=== PATIENT | female | born 1930 | race Caucasian/White ===

== ENCOUNTER → 2018-09-13 | Outpatient (CLI) | payer MEDICARE, OTHER | LOC: CARD 11:20 | PROVIDERS: ATTEND Internal Medicine Cardiovascular Disease | DX: I83.899 Varicose veins of unspecified lower extremity with other complications (principal); E78.2 Mixed hyperlipidemia; I10 Essential (primary) hypertension; I65.23 Occlusion and stenosis of bilateral carotid arteries; Z82.49 Family history of ischemic heart disease and other diseases of the circulatory system; I08.1 Rheumatic disorders of both mitral and tricuspid valves | CPT/HCPCS: 93306 ==

== ENCOUNTER 2020-06-03 22:17 | Inpatient (IN) | payer MEDICARE, OTHER ==
[~2020-06-03] VITALS: Ht 162.6 cm; Wt 69.0 kg
[2020-06-03] MEDS ORDERED: dilTIAZem DRIP PRE-MIX 125 ML IV SCH (23:30)
[2020-06-04 02:46] LABS: BASOPHILS # (AUTO) 0.1 10^3/uL (0.0-0.1); BASOPHILS % (AUTO) 1 % (0-10); EOSINOPHILS # (AUTO) 0.1 10^3/uL (0.0-0.3); EOSINOPHILS % (AUTO) 2 % (0-10); HEMATOCRIT 34 % (35-52); HEMOGLOBIN 11.1 g/dL (11.5-16.0); LYMPHOCYTES # (AUTO) 1.1 10^3/uL (1.0-4.0); LYMPHOCYTES % (AUTO) 15 % (12-44); MEAN CORPUSCULAR HEMOGLOBIN 30 pg (25-34); MEAN CORPUSCULAR HGB CONC 33 g/dL (32-36); MEAN CORPUSCULAR VOLUME 93 fL (80-99); MEAN PLATELET VOLUME 10.7 fL (9.0-12.2); MONOCYTES # (AUTO) 0.6 10^3/uL (0.0-1.0); MONOCYTES % (AUTO) 9 % (0-12); NEUTROPHILS # (AUTO) 5.2 10^3/uL (1.8-7.8); NEUTROPHILS % (AUTO) 74 % (42-75); PLATELET COUNT 235 10^3/uL (130-400); WHITE BLOOD COUNT 7.1 10^3/uL (4.3-11.0)
[2020-06-04 03:00] LABS: ALBUMIN 3.1 GM/DL (3.2-4.5)
[2020-06-04 03:01] LABS: CHLORIDE 106 MMOL/L (98-107); POTASSIUM 3.6 MMOL/L (3.6-5.0); SODIUM 141 MMOL/L (135-145)
[2020-06-04 03:02] LABS: CALCIUM 8.4 MG/DL (8.5-10.1)
[2020-06-04 03:03] LABS: GLUCOSE 124 MG/DL (70-105); TOTAL PROTEIN 5.4 GM/DL (6.4-8.2)
[2020-06-04 03:04] LABS: CARBON DIOXIDE 27 MMOL/L (21-32)
[2020-06-04 03:05] LABS: BILIRUBIN,TOTAL 0.3 MG/DL (0.1-1.0)
[2020-06-04 03:06] LABS: ALKALINE PHOSPHATASE 77 U/L (40-136); PHOSPHORUS 3.2 MG/DL (2.3-4.7)
[2020-06-04 03:07] LABS: CREATININE SERUM 0.76 MG/DL (0.60-1.30); GFR ESTIMATED > 60
[2020-06-04 03:08] LABS: BUN/CREATININE RATIO 30
[2020-06-04 03:10] LABS: ALANINE AMINOTRANSFERASE 28 U/L (0-55); MAGNESIUM 1.9 MG/DL (1.6-2.4)
--- NOTE | 2020-06-04 04:39 | Pulmonary Consultation ---
History of Present Illness History of Present Illness Date Seen by Provider: Jun 04, 2020 Time Seen by Provider: 04:34 Date of Admission Allergies and Home Medications Allergies Coded Allergies: penicillin G benethamine (Verified Allergy, Mild, 06/03/20) Past Lrnoovv-Psysct-Mmanwt Hx Immunizations Up To Date Date of Pneumonia Vaccine: Jun 04, 2017 Review of Systems Time Seen by Provider: 04:37 Sepsis Event Evaluation Height, Weight, BMI Height: '" Weight: lbs. oz. kg; BMI Method: Exam Exam Vital Signs Date Time Temp Pulse Resp B/P (MAP) Pulse Ox O2 Delivery O2 Flow Rate FiO2 06/04/20 04:00 97 Nasal Cannula 1.00 06/04/20 01:00 66 06/04/20 01:00 66 81/35 (50) 96 Nasal Cannula 1.00 06/04/20 01:00 97 Nasal Cannula 1.00 06/03/20 23:14 81 Height & Weight Height: '" Weight: lbs. oz. kg; BMI Method: Results Lab Laboratory Tests 06/04/20 02:31 Assessment/Plan Assessment/Plan SOB worse with exertion -Oxygen -Monitor -Check CXR Afib RVR -Cardizem gtt -Cardiology consulted -Currently on Xeralto -Echo pending Hypothryoid -start home synthroid -Check TSH HTN -Monitor KRISTINA GUPTA DO Jun 04, 2020 04:39
[2020-06-04] MEDS ORDERED: MAGNESIUM 1 GM/100 ML IVPB 100 ML IV SCH ×2 (06:00)
[2020-06-04] MEDS ORDERED: KCL 20 MEQ TAB (K-DUR) PO SCH ×2 (06:00)
[2020-06-04] MEDS ORDERED: POTASSIUM CL 10MEQ/50ML IVPB 50 ML IV SCH ×2 (06:00)
--- NOTE | 2020-06-04 07:53 | Diagnostic Imaging Report ---
INDICATION: Dyspnea. EXAMINATION: Single view chest 06/04/2020 FINDINGS: Heart is slightly prominent. Pulmonary vasculature is unremarkable. There is an infiltrate at the left lung base with small adjacent effusion. Right infrahilar infiltrate also suspected. Remaining lungs clear. There is no pneumothorax IMPRESSION: 1. Bilateral infiltrates with small left effusion. Dictated by: Dictated on workstation # [id number]
--- NOTE | 2020-06-04 07:57 | Consultation-Cardiology ---
HPI-Cardiology Cardiology Consultation: Date of Consultation 06/04/20 Date of Admission Attending Physician Carolin Yan MD Admitting Physician Carolin Yan MD Consulting Physician Faby Preston MD Primary Diesel Engine Tester: Dr. Gamez JIE-Syhqrq-Xnvaew Hx Immunizations Up To Date Date of Pneumonia Vaccine: Jun 04, 2017 Past Medical History PMH As described under Assessment. Allergies and Home Medications Allergies Coded Allergies: penicillin G benethamine (Verified Allergy, Mild, 06/03/20) Home Medications Amlodipine Besylate 5 Mg Tablet, 5 MG PO DAILY, (Reported) Ascorbate Calcium 500 Mg Tablet, 500 MG PO DAILY, (Reported) Cholecalciferol (Vitamin D3) 25 Mcg Capsule, 25 MCG PO DAILY, (Reported) Ketorolac Tromethamine 5 Ml Drops, 1 DROP OS QID, (Reported) Levothyroxine Sodium 88 Mcg Tablet, 88 MCG PO ,,,,,SA, (Reported) DOES NOT TAKE ON WEDNESDAY Lisinopril 40 Mg Tablet, 40 MG PO DAILY, (Reported) Lisinopril 40 Mg Tablet, 40 MG PO HS PRN for BLOOD PRESSURE, (Reported) Multivitamin 1 Each Tablet, 1 EACH PO DAILY, (Reported) Naproxen 250 Mg Tablet, 250 MG PO BID PRN for PAIN-MILD (1-4), (Reported) Ofloxacin 5 Ml Drops, 1 DROP OS QID, (Reported) L[place]-3 Fatty Acids/Fish Oil 1 Each Capsule, 1 EACH PO DAILY, (Reported) Potassium Chloride 10 Meq Tablet.er, 10 MEQ PO DAILY, (Reported) Prednisolone Acetate/Pf 5 Ml Drops.susp, 1 DROPS OS QID, (Reported) Vitamin E (Dl,Tocopheryl Acet) 100 Unit Capsule, 100 UNIT PO DAILY, (Reported) Physical Exam-Cardiology Physical Exam Vital Signs/I&O 06/04/20 06/04/20 06/04/20 06/04/20 05:00 05:00 05:30 06:00 Temp 36.2 Pulse 72 79 71 Resp 15 25 21 B/P (MAP) 84/49 (61) 110/58 (75) 101/71 (81) Pulse Ox 93 91 91 O2 Delivery Nasal Cannula Nasal Cannula Nasal Cannula O2 Flow Rate 1.00 1.00 1.00 06/04/20 06/04/20 06/04/20 06/04/20 07:00 07:05 08:00 08:26 Temp 36.7 Pulse 71 78 77 Resp 16 24 B/P (MAP) 104/57 (73) 85/51 (62) Pulse Ox 87 89 O2 Delivery Nasal Cannula Nasal Cannula O2 Flow Rate 1.00 1.00 06/04/20 06/04/20 06/04/20 06/04/20 08:42 09:00 09:20 11:00 Temp 36.7 Pulse 71 78 73 Resp 13 10 B/P (MAP) 95/64 (74) 105/73 (84) Pulse Ox 95 95 94 96 O2 Delivery Nasal Cannula Room Air Nasal Cannula O2 Flow Rate 1.00 1.00 06/04/20 06/04/20 06/04/20 06/04/20 12:53 13:23 14:47 15:25 Temp 36.2 36.0 Pulse Ox 94 O2 Delivery Nasal Cannula O2 Flow Rate 1.50 Capillary Refill : Data Review Labs Laboratory Tests 06/04/20 02:31: White Blood Count 7.1, Red Blood Count 3.65L, Hemoglobin 11.1L, Hematocrit 34L, Mean Corpuscular Volume 93, Mean Corpuscular Hemoglobin 30, Mean Corpuscular Hemoglobin Concent 33, Red Cell Distribution Width 13.7, Platelet Count 235, Mean Platelet Volume 10.7, Immature Granulocyte % (Auto) 0, Neutrophils (%) (Auto) 74, Lymphocytes (%) (Auto) 15, Monocytes (%) (Auto) 9, Eosinophils (%) (Auto) 2, Basophils (%) (Auto) 1, Neutrophils # (Auto) 5.2, Lymphocytes # (Auto) 1.1, Monocytes # (Auto) 0.6, Eosinophils # (Auto) 0.1, Basophils # (Auto) 0.1, Immature Granulocyte # (Auto) 0.0, Sodium Level 141, Potassium Level 3.6, Chloride Level 106, Carbon Dioxide Level 27, Anion Gap 8, Blood Urea Nitrogen 23H, Creatinine 0.76, Estimat Glomerular Filtration Rate > 60, BUN/Creatinine Ratio 30, Glucose Level 124H, Calcium Level 8.4L, Corrected Calcium 9.1, Phosphorus Level 3.2, Magnesium Level 1.9, Total Bilirubin 0.3, Aspartate Amino Transf (AST/SGOT) 53H, Alanine Aminotransferase (ALT/SGPT) 28, Alkaline Phosphatase 77, B-Type Natriuretic Peptide 540.7H, Total Protein 5.4L, Albumin 3.1L ECG Impression ECG Initial ECG Impression: Atrial Fibrillation A/P-Cardiology Assessment/Admission Diagnosis A-fib H/O PAD H/O right CEA - carotid u/s of Feb [address] Gamez showed mild bilat dz HTN HLD Echocardiogram of August [address] Gamez showed mild MR, mild to mod TR, PASP45 mmHg Clinical Quality Measures DVT/VTE Risk/Contraindication: Risk Factor Score Per Nursin RFS Level Per Nursing on Admit: 2=Moderate THOMPSON CAMPBELL Jun 04, 2020 07:57
[2020-06-04] MEDS ORDERED: FLU QUAD HIGH DOSE 240 MCG/0.7 ML 2020-21 (FLUZONE) IM ONE (08:00)
[2020-06-04] MEDS ORDERED: KCL 20 MEQ TAB (K-DUR) PO ONE (08:00)
--- NOTE | 2020-06-04 08:18 | History & Physical ---
History of Present Illness History of Present Illness Reason for visit/HPI PT IS AN 89 Y/O FEMALE WHO IS KNOWN TO ME FROM CLINIC. SHE PRESENTED TO THE [facility] EMERGENCY DEPARTMENT WITH COMPLAINT OF PROGRESSIVE SHORTNESS OF BREATH AND WEAKNESS. SHE WAS EVALUATED, FOUND TO BE IN AFIB WITH RVR, HEART RATE IN THE 120 - 140 RANGE, STARTED ON A CARDIZEM DRIP AND THEN TRANSFERRED TO [facility] ICU FOR CARDIOLOGY EVALUATION AND FURTHER MEDICAL MANAGEMENT BY THIS EQUAL OPPORTUNITY DIRECTOR. THIS MORNING SHE DENIES CHEST PAIN, SHORTNESS OF BREATH IS SLIGHT COMPARED TO YESTERDAY, NO BACK PAIN, NO ABDOMINAL PAIN. Date of Admission Jun 03, 2020 at 23:05 Date Seen by a Provider: Jun 04, 2020 Time Seen by a Provider: 08:00 Attending Physician Charlene Yan MD Admitting Physician Charlene Yan MD Consult CARDIOLOGY, CRITICAL CARE Allergies and Home Medications Allergies Coded Allergies: penicillin G benethamine (Verified Allergy, Mild, 06/03/20) Home Medications Amlodipine Besylate 5 Mg Tablet, 5 MG PO DAILY, (Reported) Ascorbate Calcium 500 Mg Tablet, 500 MG PO DAILY, (Reported) Cholecalciferol (Vitamin D3) 25 Mcg Capsule, 25 MCG PO DAILY, (Reported) Ketorolac Tromethamine 5 Ml Drops, 1 DROP OS QID, (Reported) Levothyroxine Sodium 88 Mcg Tablet, 88 MCG PO ,,,,FR,SA, (Reported) DOES NOT TAKE ON WEDNESDAY Lisinopril 40 Mg Tablet, 40 MG PO DAILY, (Reported) Lisinopril 40 Mg Tablet, 40 MG PO HS PRN for BLOOD PRESSURE, (Reported) Multivitamin 1 Each Tablet, 1 EACH PO DAILY, (Reported) Naproxen 250 Mg Tablet, 250 MG PO BID PRN for PAIN-MILD (1-4), (Reported) Ofloxacin 5 Ml Drops, 1 DROP OS QID, (Reported) Bee-3 Fatty Acids/Fish Oil 1 Each Capsule, 1 EACH PO DAILY, (Reported) Potassium Chloride 10 Meq Tablet.er, 10 MEQ PO DAILY, (Reported) Prednisolone Acetate/Pf 5 Ml Drops.susp, 1 DROPS OS QID, (Reported) Vitamin E (Dl,Tocopheryl Acet) 100 Unit Capsule, 100 UNIT PO DAILY, (Reported) Patient Home Medication List Home Medication List Reviewed: Yes Past Gcuyzcg-Xpocxq-Txkzpo Hx Past Med/Social Hx: Reviewed Nursing Past Med/Soc Hx, Reviewed and Corrections made Patient Social History Marrital Status: Living Status: LIVES AT HOME WITH SPOUSE IN [place] Employed/Student: retired Alcohol Use: Denies Use Smoking Status: Never a Smoker 2nd Hand Smoke Exposure: No Physical Abuse Screen: No Sexual Abuse: No Recent Foreign Travel: No Contact w/other who traveled: No Recent Hopitalizations: No Recent Infectious Disease Expo: No Immunizations Up To Date Date of Pneumonia Vaccine: Jun 04, 2017 Seasonal Allergies Seasonal Allergies: No Past Medical History Surgeries: Vascular Surgery (carotid endarterectomy) Currently Using CPAP: No Currently Using BIPAP: No Cardiac: High Cholesterol, Hypertension Female Reproductive Disorders: Denies Musculoskeletal: Arthritis Loss of Vision: Denies Hearing Impairment: Denies History of Blood Disorders: No Adverse Reaction to Blood Currie: No Family History Heart Disease, Hypertension Review of Systems Constitutional: No chills, No fever; malaise, weakness EENTM: hoarseness; No throat pain Respiratory: No cough; dyspnea on exertion, short of breath Cardiovascular: chest pain, palpitations Gastrointestinal: No abdominal pain, No constipation, No diarrhea Genitourinary: no symptoms reported Musculoskeletal: muscle weakness Skin: no symptoms reported Psychiatric/Neurological: Denies Anxiety, Denies Depressed; Weakness All Other Systems Reviewed Negative Unless Noted: Yes Physical Exam Vital Signs Vital Signs - First Documented 06/03/20 23:11 Pulse 104 Resp 28 B/P (MAP) 134/110 (118) Pulse Ox 98 O2 Delivery Nasal Cannula O2 Flow Rate 1.00 Capillary Refill : Height, Weight, BMI Height: '" Weight: lbs. oz. kg; 26.96 BMI Method: General Appearance: No Apparent Distress, WD/WN Eyes: Bilateral Eye Normal Inspection, Bilateral Eye PERRL, Bilateral Eye EOMI HEENT: PERRL/EOMI, TMs Normal, Normal ENT Inspection, Pharynx Normal Neck: Full Range of Motion, Non Tender, Supple Respiratory: Chest Non Tender, Crackles (in bases), Decreased Breath Sounds Cardiovascular: Irregularly Irregular, Tachycardia Gastrointestinal: Normal Bowel Sounds, No Organomegaly, No Pulsatile Mass, Non Tender, Soft Rectal: Deferred Back: Normal Inspection, No Vertebral Tenderness Extremity: Normal Capillary Refill, Normal Range of Motion, Non Tender, No Calf Tenderness, No Pedal Edema Neurologic/Psychiatric: Alert, Oriented x3, No Motor/Sensory Deficits, Normal Mood/Affect, manufacturing cost 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 HYPERLIPIDEMIA - RESUME HOME REGIMEN Admission Diagnosis NEW ONSET ATRIAL FIBRILLATION ACUTE BACTERIAL PNEUMONIA ELEVATED BNP HYPERTENSION HYPERLIPIDEMIA Admission Status: Inpatient Order (span 2 midnights) Reason for Inpatient Admission: INPATIENT ADMISSION FOR ATRIAL FIBRILLATION, PNEUMONIA - WILL REQUIRE AT LEAST 48 - 72 HOURS FOR STABILIZATION, MEDICATION MANAGEMENT Clinical Quality Measures DVT/VTE Risk/Contraindication: Risk Factor Score Per Nursin RFS Level Per Nursing on Admit: 2=Moderate CHARLENE YAN MD Jun 04, 2020 08:18
[2020-06-04 08:42] VITALS: BP 101/71
[2020-06-04] MEDS ORDERED: RT-ALBUTEROL INHALER HFA (VENTOLIN HFA) 18 GM IH PRN (09:00)
[2020-06-04] MEDS: RT-ALBUTEROL INHALER HFA (VENTOLIN HFA) 18 GM IH SCH ×2 (09:30→21:46)
--- NOTE | 2020-06-04 11:20 | Cardiology History & Physical ---
HPI-Cardiology Cardiology H&P Date of Admission 06/03/19 Primary Care Physician Carolin Yan MD Attending Physician Carolin Yan MD Consulting Physician Dr. Faby Preston [facility] Azra Majano is an 89 y/o female w/ PMHx of HTN, HLD, hypothyroidism and rCEA who presents from the [place] ER for management of SOB, racing heart sensation and fatigue onset yesterday night. Patient states she was at home relaxing when symptoms gradually onset till she felt she needed to go to the ER. She denies any associated CP at any point, though the tachycardia has been occurring for the last 2 days (she is unsure if constant vs episodic) and states she has never had previous episodes of tachycardia. Per note by Dr. Yan, EKG done at [place] showed Afib with RVR and rate of 120-140; subsequently started on Cardizem drip and transferred to [facility] for further management. Upon arrival last night, patient was seen by Dr. Ledbetter, EKG showed afib, patient reported SOB w/exertion. Patient was put on Cardizem and Xoralto. Cxr showed bilateral infiltrates and small L pleural effusion, currently on Azithromycin and Ceftriaxone, as well as 1L nc (sat 95%). Labs from this morning show elevated BNP of 540.7 and mild anemia of 11.1 otherwise unremarkable. Echo has been ordered by Dr. Yan, patient currently laying comfortably in her room with no current complaints and stating that her breathing is significantly improved though she is having trouble remembering much of the last 24 hours. Denies and significant cardiac history prior to current visit other than a murmur during one of her pregnancies which has since resolved, notes her father's side of the family has a hx of CVAs. Patient had an echo done by Dr. Gamez 08/2018 which showed mild mitral regurge,mild/moderate tricuspid regurge and PASP of 45. Review of Systems-Cardiology Review of Systems Constitutional: No fever; tiredness Eyes: No blindness, No blurred vision, No photophobia, No vision change Ears/Nose/Throat: No epistaxis; nasal drainage (trace, chronic); No recent hearing loss Respiratory: No cough; SOB with excertion (resolved), SOB at rest (resolved); No wheezing Cardiovascular: No chest pain; edema (2+ pitting), irregular heart rate (resolved); No lightheadedness, No syncope Gastrointestinal: No abdomen distended, No abdominal pain, No constipation, No diarrhea, No nausea, No vomiting Genitourinary: No dysuria, No urine coloration changes Musculoskeletal: back pain (chronic), joint pain (chronic, L hip) Skin: No change in color, No ulcerations Psychiatric/Neurological: No numbness, No seizure, No focal weakness, No syncope AKT-Uulthd-Wsoraj Hx Patient Social History Marrital Status: Living Status: LIVES AT HOME WITH SPOUSE IN [place] Employed/Student: retired Alcohol Use: Denies Use Smoking Status: Never a Smoker 2nd Hand Smoke Exposure: No Recent Foreign Travel: No Recent Infectious Disease Expo: No Physical Abuse Screen: No Sexual Abuse: No Immunizations Up To Date Date of Pneumonia Vaccine: Jun 04, 2017 Past Medical History PMH As described under Assessment., lower back vertebral compression fracture Family Medical History Family Medical History: Father: CVA (multiple members on his side) mother: Leukemia Allergies and Home Medications Allergies Coded Allergies: penicillin G benethamine (Verified Allergy, Mild, 06/03/20) Home Medications Amlodipine Besylate 5 Mg Tablet, 5 MG PO DAILY, (Reported) Ascorbate Calcium 500 Mg Tablet, 500 MG PO DAILY, (Reported) Cholecalciferol (Vitamin D3) 25 Mcg Capsule, 25 MCG PO DAILY, (Reported) Ketorolac Tromethamine 5 Ml Drops, 1 DROP OS QID, (Reported) Levothyroxine Sodium 88 Mcg Tablet, 88 MCG PO ,,,,FR,SA, (Reported) DOES NOT TAKE ON WEDNESDAY Lisinopril 40 Mg Tablet, 40 MG PO DAILY, (Reported) Lisinopril 40 Mg Tablet, 40 MG PO HS PRN for BLOOD PRESSURE, (Reported) Multivitamin 1 Each Tablet, 1 EACH PO DAILY, (Reported) Naproxen 250 Mg Tablet, 250 MG PO BID PRN for PAIN-MILD (1-4), (Reported) Ofloxacin 5 Ml Drops, 1 DROP OS QID, (Reported) Fulda-3 Fatty Acids/Fish Oil 1 Each Capsule, 1 EACH PO DAILY, (Reported) Potassium Chloride 10 Meq Tablet.er, 10 MEQ PO DAILY, (Reported) Prednisolone Acetate/Pf 5 Ml Drops.susp, 1 DROPS OS QID, (Reported) Vitamin E (Dl,Tocopheryl Acet) 100 Unit Capsule, 100 UNIT PO DAILY, (Reported) Patient Home Medication List Home Medication List Reviewed: Yes Physical Exam-Cardiology Physical Exam Vital Signs/I&O 06/04/20 06/04/20 06/04/20 06/04/20 03:00 04:00 04:00 05:00 Pulse 69 70 72 Resp 21 25 15 B/P (MAP) 89/61 (67) 98/57 (69) 84/49 (61) Pulse Ox 96 97 92 93 O2 Delivery Nasal Cannula Nasal Cannula Nasal Cannula Nasal Cannula O2 Flow Rate 1.00 1.00 1.00 1.00 06/04/20 06/04/20 06/04/20 06/04/20 05:00 05:30 06:00 07:00 Temp 36.2 Pulse 79 71 71 Resp 21 16 B/P (MAP) 110/58 (75) 101/71 (81) 104/57 (73) Pulse Ox 91 91 87 O2 Delivery Nasal Cannula Nasal Cannula Nasal Cannula O2 Flow Rate 1.00 1.00 1.00 06/04/20 06/04/20 06/04/20 06/04/20 07:05 08:00 08:26 08:42 Temp 36.7 36.7 Pulse 78 77 71 Resp 24 B/P (MAP) 85/51 (62) Pulse Ox 89 95 O2 Delivery Nasal Cannula O2 Flow Rate 1.00 06/04/20 06/04/20 06/04/20 06/04/20 09:00 11:00 12:53 13:23 Temp 36.2 Pulse 78 73 Resp 13 10 B/P (MAP) 95/64 (74) 105/73 (84) Pulse Ox 95 96 O2 Delivery Nasal Cannula Nasal Cannula Nasal Cannula O2 Flow Rate 1.00 1.00 1.50 Capillary Refill : Constitutional: appears stated age, AAO x 3; No apparent distress HEENT: No scleral icterus (R), No scleral icterus (L), No pale conjunctivae (R), No photophobia; hearing is well preserved Neck: non-tender, full range of motion, normal inspection; No carotid bruit, No lymphadenopathy (R), No lymphadenopathy (L), No tender lateral, No tender midline, No thyromegaly; carotid pulses are 2 + bilaterally Respiratory: No accessory muscle use, No respiratory distress, No chest tender; chest expansion is symmetric; No rhonchi, No wheezing Cardiovascular: irregularly irregular; No bradycardia, No tachycardia; other (quiet heart sounds) Gastrointestinal: No tender; soft; No distended, No pulsatile mass, No organomegaly, No guarding, No rebound, No tenderness; audible bowel sounds; No abdominal bruits, No spleenomegaly Extremities: normal range of motion, non-tender, pedal edema (2+ pitting); No calf tenderness, No calf tenderness, No cyanosis, No laceration Neurologic/Psychiatric: no motor/sensory deficits, alert, normal mood/affect, oriented x 3; No aphasia, No facial droop, No depressed affect Skin: normal color; No diaphoresis, No ecchymosis, No jaundice, No rash, No ulcerations Data Review Labs Laboratory Tests 06/04/20 02:31: White Blood Count 7.1, Red Blood Count 3.65L, Hemoglobin 11.1L, Hematocrit 34L, Mean Corpuscular Volume 93, Mean Corpuscular Hemoglobin 30, Mean Corpuscular H emoglobin Concent 33, Red Cell Distribution Width 13.7, Platelet Count 235, Mean Platelet Volume 10.7, Immature Granulocyte % (Auto) 0, Neutrophils (%) (Auto) 74, Lymphocytes (%) (Auto) 15, Monocytes (%) (Auto) 9, Eosinophils (%) (Auto) 2, Basophils (%) (Auto) 1, Neutrophils # (Auto) 5.2, Lymphocytes # (Auto) 1.1, Monocytes # (Auto) 0.6, Eosinophils # (Auto) 0.1, Basophils # (Auto) 0.1, Immature Granulocyte # (Auto) 0.0, Sodium Level 141, Potassium Level 3.6, Chloride Level 106, Carbon Dioxide Level 27, Anion Gap 8, Blood Urea Nitrogen 23H, Creatinine 0.76, Estimat Glomerular Filtration Rate > 60, BUN/Creatinine Ratio 30, Glucose Level 124H, Calcium Level 8.4L, Corrected Calcium 9.1, Phosphorus Level 3.2, Magnesium Level 1.9, Total Bilirubin 0.3, Aspartate Amino Transf (AST/SGOT) 53H, Alanine Aminotransferase (ALT/SGPT) 28, Alkaline Phosphatase 77, B-Type Natriuretic Peptide 540.7H, Total Protein 5.4L, Albumin 3.1L A/P-Cardiology Assessment/Admission Diagnosis -A-fib (new onset, dx on 06/03/20 by EKG at [facility]) -continue OAC Xarelto for CVA prophylaxis -continue Cardizem for rate control -echocardiogram ordered -order TSH -Multifactorial SOB secondary to CHF (possibly pneumonia) -management per pulmonary -currently on Azithromycin and Ceftriaxone -Elevated BNP -likely from Afib -repeat labs Possible CHF -diuretics -monitor labs and replace as needed Chronic -HTN -HLD -hypothyroidism -L hip pain -lower back compression fx Admission Status: Inpatient Order (span 2 midnights) Reason for Inpatient Admission: A fib with RVR and associated shortness of breath and malaise Discussion and Recomendations We saw the patient in consult. History and physical are described above Symptoms have improved with rate control with diltiazem Change to oral diltiazem Continue stroke prophylaxis with rivaroxaban Monitor labs Clinical Quality Measures DVT/VTE Risk/Contraindication: Risk Factor Score Per Nursin RFS Level Per Nursing on Admit: 2=Moderate PALAK CHOPRA MED STUDENT Jun 04, 2020 11:20 FABY PRESTON MD FACP FAC CCDS Jun 04, 2020 14:52
[2020-06-04] MEDS: AZITHROMYCIN 250 MG TAB (ZITHROMAX) PO SCH (13:28)
[2020-06-04] MEDS: cefTRIAXone FOR IV USE 1,000 MG in WATER (STERILE) FOR INJECTION 10 ML IV SCH (13:28)
[2020-06-04] MEDS ORDERED: NAPR250T6 PO (13:59)
[2020-06-04] MEDS ORDERED: AMLO-250 PO (13:59)
[2020-06-04] MEDS ORDERED: POTA10TA PO (13:59)
[2020-06-04] MEDS ORDERED: ASCO-262 PO (13:59)
[2020-06-04] MEDS ORDERED: CHOL100048 PO (13:59)
[2020-06-04] MEDS ORDERED: LISI40TA PO ×2 (13:59)
[2020-06-04] MEDS ORDERED: OMEG-109 PO (13:59)
[2020-06-04] MEDS ORDERED: MULT-1136 PO (13:59)
[2020-06-04] MEDS ORDERED: VITA100C22 PO (13:59)
--- NOTE | 2020-06-04 14:01 | NUR ---
ATTEMPTED TO CALL PATIENTS DAUGHTERSALINAS AT [phone]. UNABLE TO LEAVE MESSAGE, PHONE ONLY RANG. WILL AWAIT FOR FAMILY TO CALL.
[2020-06-04] MEDS ORDERED: PRED5DRO24 OS (14:08)
[2020-06-04] MEDS ORDERED: LEVO88TA54 PO (14:08)
[2020-06-04] MEDS ORDERED: OFLO5DRO3 OS (14:08)
[2020-06-04] MEDS ORDERED: KETO5DRO14 OS (14:08)
--- NOTE | 2020-06-04 14:15 | NUR ---
SPOKE WITH THE PT, WENT THRU THE EXT MED HISTORY AND CALLED [facility] TO COMPLETE THE MED REC ACCORDING TO THE PT SHE TAKES LISINOPRIL 40MG DAILY (WHICH IS SHOWN ON THE EXT MED HISTORY) AND LATELY SHE HAS BEEN TAKING A SECOND DOSE IN THE EVENING IF HER BP IS RAISED. PT WAS HONEST IN SAYING THAT NO ONE INSTRUCTED HER TO DO THIS BUT SHE DIDNT WANT HER BP TO GET TO HIGH AND THOUGHT THIS WOULD HELP. 1 ENTRY ON THE MED REC IS THE DAILY SCHEDULED DOSE AND I INCLUDED 1 ENTRY FOR THE BEDTIME PRN FOR DISCHAGE PURPOSES SHE IS CURRENTLY USING 3 DIFFERENT EYEDROPS DUE TO AN EYE PROCEDURE. SHE IS ONLY TO BE USING ON THE CURRENT OPERATIVE EYE (WHICH IS THE LEFT EYE) BUT SHE SOMETIMES FORGETS AND WILL PUT A DROP IN THE OTHER EYE (SHE WAS USING IN HER RIGHT EYE ONLY A COUPLE MONTHS AGO WHEN SHE HAD THE FIRST PROCEDURE DONE) OTC MEDS: MTV VIT E VIT C VIT D FISH OIL
[2020-06-04] MEDS: LEVOTHYROXINE 88 MCG (LEVOTHORID) TAB PO SCH (18:31)
[2020-06-04] MEDS: RIVAROXABAN 20 MG TABLET (XARELTO) PO SCH (18:31)
[2020-06-05] MEDS: ACETAMINOPHEN 500 MG TAB (TYLENOL) PO PRN ×2 (02:14→19:42)
[2020-06-05 03:16] LABS: BASOPHILS # (AUTO) 0.1 10^3/uL (0.0-0.1); BASOPHILS % (AUTO) 1 % (0-10); EOSINOPHILS # (AUTO) 0.2 10^3/uL (0.0-0.3); EOSINOPHILS % (AUTO) 2 % (0-10); HEMATOCRIT 36 % (35-52); HEMOGLOBIN 11.5 g/dL (11.5-16.0); LYMPHOCYTES % (AUTO) 13 % (12-44); MEAN CORPUSCULAR HEMOGLOBIN 30 pg (25-34); MEAN CORPUSCULAR HGB CONC 32 g/dL (32-36); MEAN CORPUSCULAR VOLUME 94 fL (80-99); MEAN PLATELET VOLUME 10.9 fL (9.0-12.2); MONOCYTES # (AUTO) 0.7 10^3/uL (0.0-1.0); MONOCYTES % (AUTO) 9 % (0-12); NEUTROPHILS # (AUTO) 5.9 10^3/uL (1.8-7.8); NEUTROPHILS % (AUTO) 75 % (42-75); PLATELET COUNT 239 10^3/uL (130-400); WHITE BLOOD COUNT 7.9 10^3/uL (4.3-11.0)
[2020-06-05 03:34] LABS: CHLORIDE 106 MMOL/L (98-107); POTASSIUM 3.9 MMOL/L (3.6-5.0); SODIUM 139 MMOL/L (135-145)
[2020-06-05 03:35] LABS: GLUCOSE 103 MG/DL (70-105)
[2020-06-05 03:37] LABS: CARBON DIOXIDE 25 MMOL/L (21-32)
[2020-06-05 03:39] LABS: CREATININE SERUM 0.77 MG/DL (0.60-1.30); GFR ESTIMATED > 60
[2020-06-05 03:40] LABS: BUN/CREATININE RATIO 23
--- NOTE | 2020-06-05 04:24 | Pulmonary Progress Note ---
TAYLOR JULIAN,MED STUDENT 06/05/20 0423: Subjective Date Seen by a Provider: Jun 05, 2020 Time Seen by a Provider: 04:22 Subjective/Events-last exam Pt states she is doing better. Her shortness of breath is improved. She continues to deny chest pain and palpitations. Review of Systems General: No Chills Pulmonary: No Dyspnea, No Cough Cardiovascular: No: Chest Pain, Palpitations Sepsis Event Evaluation Height, Weight, BMI Height: '" Weight: lbs. oz. kg; 26.96 BMI Method: Exam Exam Vital Signs Date Time Temp Pulse Resp B/P (MAP) Pulse Ox O2 Delivery O2 Flow Rate FiO2 06/05/20 04:04 36.7 06/04/20 23:49 36.8 Nasal Cannula 1.00 06/04/20 22:00 79 16 101/71 (81) 96 Nasal Cannula 1.00 06/04/20 21:47 94 Nasal Cannula 2.00 06/04/20 20:21 37.0 06/04/20 20:00 95 Nasal Cannula 1.00 06/04/20 19:45 36.2 80 18 121/64 (83) 95 Nasal Cannula 1.00 06/04/20 15:25 36.0 06/04/20 14:47 94 06/04/20 14:30 105 22 117/66 (83) 93 Nasal Cannula 1.00 06/04/20 14:00 77 20 96 Nasal Cannula 1.00 06/04/20 13:23 Nasal Cannula 1.50 06/04/20 13:00 81 12 117/81 (93) 95 Nasal Cannula 1.00 06/04/20 12:53 36.2 06/04/20 12:45 81 06/04/20 12:00 66 16 107/54 (71) 93 Nasal Cannula 1.00 06/04/20 11:00 73 10 105/73 (84) 96 Nasal Cannula 1.00 06/04/20 09:20 94 Room Air 06/04/20 09:00 78 13 95/64 (74) 95 Nasal Cannula 1.00 06/04/20 08:42 36.7 71 95 06/04/20 08:26 36.7 06/04/20 08:00 77 24 85/51 (62) 89 Nasal Cannula 1.00 06/04/20 07:05 78 06/04/20 07:00 71 16 104/57 (73) 87 Nasal Cannula 1.00 06/04/20 06:00 71 21 101/71 (81) 91 Nasal Cannula 1.00 06/04/20 05:30 79 25 110/58 (75) 91 Nasal Cannula 1.00 06/04/20 05:00 36.2 06/04/20 05:00 72 15 84/49 (61) 93 Nasal Cannula 1.00 I & O 06/05/20 07:00 Intake Total 590 ml Output Total 570 ml Balance 20 ml Height & Weight Height: '" Weight: lbs. oz. kg; 26.96 BMI Method: General Appearance: No Apparent Distress, WD/WN HEENT: Other (NC in place) Respiratory: Lungs Clear, Normal Breath Sounds, No Accessory Muscle Use, No Respiratory Distress Cardiovascular: Irregularly Irregular, Tachycardia Capillary Refill: Less Than 3 Seconds Gastrointestinal: non tender, soft Neurologic/Psychiatric: Alert, Oriented x3, No Motor/Sensory Deficits, Normal Mood/Affect Skin: Normal Color, Warm/Dry Results Lab Laboratory Tests 06/04/20 02:31 06/05/20 02:53 Assessment/Plan Assessment/Plan SOB worse with exertion -1 L O2 NC -Monitor -On Azithro and ceftriaxone Afib RVR -oral Cardizem -Cardiology consulted -Currently on Xeralto -Echo: EF 55-60% Hypothryoid -start home synthroid -Check TSH HTN -Monitor KRISTINA GUPTA DO 06/05/20 0440: Assessment/Plan Assessment/Plan SOB worse with exertion -1 L O2 NC -Monitor -On Azithro and ceftriaxone Afib RVR -Cardizem gtt -- Currently off -Cardiology consulted -Currently on Xeralto -Echo: EF 55-60% Hypothryoid -start home synthroid -Check TSH HTN -Monitor TAYLOR JULIANMED STUDENT Jun 05, 2020 04:23 KRISTINA GUPTA DO Jun 05, 2020 04:40
[2020-06-05] MEDS ORDERED: FUROSEMIDE 40 MG/4 ML INJ (LASIX) IVP ONE (04:45)
[2020-06-05] MEDS: LEVOTHYROXINE 88 MCG (LEVOTHORID) TAB PO SCH (05:15)
--- NOTE | 2020-06-05 07:49 | Diagnostic Imaging Report ---
Indication: Dyspnea Upright portable chest shows mild cardiomegaly with normal vascularity. There are patchy bilateral lower lobe infiltrates minimal effusions. There is no pneumothorax. IMPRESSION: Since 06/04/2020 there has been a decrease in the left-sided effusion. There is no significant change in the basilar infiltrates. Dictated by: Dictated on workstation # [id number]
[2020-06-05] MEDS: RIVAROXABAN 20 MG TABLET (XARELTO) PO SCH ×2 (07:55→17:29)
[2020-06-05] MEDS: cefTRIAXone FOR IV USE 1,000 MG in WATER (STERILE) FOR INJECTION 10 ML IV SCH (07:56)
[2020-06-05] MEDS: AZITHROMYCIN 250 MG TAB (ZITHROMAX) PO SCH (07:56)
--- NOTE | 2020-06-05 08:44 | Progress Note ---
Subjective Subjective Date Seen by Provider: Jun 05, 2020 Time Seen by Provider: 08:30 PT REPORTS THAT SHE IS FEELING BETTER, SHE DENIES CHEST PAIN, SHE DENIES NAUSEA, ABDOMINAL PAIN. PT REPORTS THAT SHE STILL HAVE SOME SENSATION OF PALPITATIONS Review of Systems General: No Chills Pulmonary: No Dyspnea, No Cough Cardiovascular: No: Chest Pain, Palpitations Objective Exam Vital Signs Vital Signs - First Documented 06/03/20 23:11 Pulse 104 Resp 28 B/P (MAP) 134/110 (118) Pulse Ox 98 O2 Delivery Nasal Cannula O2 Flow Rate 1.00 Capillary Refill : Less Than 3 Seconds General Appearance: No Apparent Distress, WD/WN HEENT: Other (NC in place) Respiratory: Lungs Clear, Normal Breath Sounds, No Accessory Muscle Use, No Respiratory Distress Cardiovascular: Irregularly Irregular, Tachycardia Neurologic/Psychiatric: Alert, Oriented x3, No Motor/Sensory Deficits, Normal Mood/Affect Skin: Normal Color, Warm/Dry Results Lab Laboratory Tests 06/05/20 02:53: White Blood Count 7.9, Red Blood Count 3.80, Hemoglobin 11.5, Hematocrit 36, Mean Corpuscular Volume 94, Mean Corpuscular Hemoglobin 30, Mean Corpuscular Hemoglobin Concent 32, Red Cell Distribution Width 13.7, Platelet Count 239, Mean Platelet Volume 10.9, Immature Granulocyte % (Auto) 0, Neutrophils (%) (Auto) 75, Lymphocytes (%) (Auto) 13, Monocytes (%) (Auto) 9, Eosinophils (%) (Auto) 2, Basophils (%) (Auto) 1, Neutrophils # (Auto) 5.9, Lymphocytes # (Auto) 1.0, Monocytes # (Auto) 0.7, Eosinophils # (Auto) 0.2, Basophils # (Auto) 0.1, Immature Granulocyte # (Auto) 0.0, Sodium Level 139, Potassium Level 3.9, Chloride Level 106, Carbon Dioxide Level 25, Anion Gap 8, Blood Urea Nitrogen 18, Creatinine 0.77, Estimat Glomerular Filtration Rate > 60, BUN/Creatinine Ratio 23, Glucose Level 103, Calcium Level 8.0L, Thyroid Stimulating Hormone (TSH) 1.94 Microbiology 06/03/20 MRSA Screen - Final, Complete MRSA not isolated Assessment/Plan Assessment/Plan Admission Dx NEW ONSET ATRIAL FIBRILLATION ACUTE BACTERIAL PNEUMONIA ELEVATED BNP HYPERTENSION HYPERLIPIDEMIA Assessment and Plan NEW ONSET ATRIAL FIBRILLATION ACUTE BACTERIAL PNEUMONIA ELEVATED BNP HYPERTENSION HYPERLIPIDEMIA NEW ONSET ATRIAL FIBRILLATION - CARDIZEM DRIP STOPPED, PT STARTED ON ORAL REGIMEN - CONSULT TO CARDIOLOGY - PT ON XARELTO FOR BLOOD THINNER ACUTE BACTERIAL PNEUMONIA - PT STARTED ON IV AZITHROMYCIN AND ROCEPHIN - MONITOR SERIAL CHEST XRAYS ELEVATED BNP - SLIGHTLY ELEVATED LIKELY DUE TO ATRIAL FIBRILLATION - MONITOR LABS HYPERTENSION - MONITOR PRESSURES ON CARDIZEM DRIP. HYPERLIPIDEMIA - RESUME HOME REGIMEN Admission Dx NEW ONSET ATRIAL FIBRILLATION ACUTE BACTERIAL PNEUMONIA ELEVATED BNP Clinical Quality Measures Admission Status Admission Dx NEW ONSET ATRIAL FIBRILLATION ACUTE BACTERIAL PNEUMONIA ELEVATED BNP DVT/VTE Risk/Contraindication: Risk Factor Score Per Nursin RFS Level Per Nursing on Admit: 2=Moderate CHARLENE NORRIS MD Jun 05, 2020 08:44
--- NOTE | 2020-06-05 09:39 | Progress Note - Cardiology ---
Cardiology SOAP Progress Note Subjective: Lying in bed States SOB is better today No c/o CP or palpitations C/O feeling weak and tired this morning Objective: I&O/Vital Signs 06/07/20 06/07/20 06/07/20 06/07/20 04:00 07:00 07:32 08:00 Temp 36.1 35.6 Pulse 68 77 116 Resp 18 20 B/P (MAP) 110/67 (81) 103/71 (82) Pulse Ox 98 90 90 O2 Delivery Room Air Room Air Room Air 06/07/20 06/07/20 06/07/20 09:00 09:20 12:00 Temp 36.0 Pulse 77 84 Resp 20 B/P (MAP) 135/92 (106) Pulse Ox 90 90 96 O2 Delivery Room Air Room Air O2 Flow Rate 2.00 06/07/20 00:00 Intake Total 910 ml Output Total 400 ml Balance 510 ml Constitutional: appears stated age, AAO x 3 Respiratory: chest expansion is symmetric, other (diminished lower lobes) Cardiovascular: irregularly irregular Gastrointestional: No tender; soft, round, audible bowel sounds Extremities: no lower extremity edema bilateral Neurologic/Psychiatric: grossly intact (moves all extremities) Skin: No rash on exposed areas, No ulcerations on exposed areas Results/Procedures: Labs Laboratory Tests 06/07/20 05:10: White Blood Count 9.9, Red Blood Count 4.08, Hemoglobin 12.3, Hematocrit 39, Mean Corpuscular Volume 95, Mean Corpuscular Hemoglobin 30, Mean Corpuscular Hemoglobin Concent 32, Red Cell Distribution Width 13.4, Platelet Count 242, Mean Platelet Volume 10.2, Immature Granulocyte % (Auto) 0, Neutrophils (%) (Auto) 76H, Lymphocytes (%) (Auto) 13, Monocytes (%) (Auto) 8, Eosinophils (%) (Auto) 3, Basophils (%) (Auto) 1, Neutrophils # (Auto) 7.5, Lymphocytes # (Auto) 1.3, Monocytes # (Auto) 0.8, Eosinophils # (Auto) 0.3, Basophils # (Auto) 0.1, Immature Granulocyte # (Auto) 0.0, Sodium Level 137, Potassium Level 4.3, Chloride Level 101, Carbon Dioxide Level 27, Anion Gap 9, Blood Urea Nitrogen 14, Creatinine 0.74, Estimat Glomerular Filtration Rate > 60, BUN/Creatinine Rat io 19, Glucose Level 102, Calcium Level 8.3L Microbiology 06/06/20 Urine Culture - Final, Complete NO GROWTH 06/03/20 MRSA Screen - Final, Complete MRSA not isolated Procedures NAME: AUBREY FRANCIS [facility] REC#: [id number] PT STATUS: ADM IN : 1930 PHYSICIAN: CHARLENE NORRIS MD ADMIT DATE: 06/03/20/ICU Signed Date of Exam:06/05/20 CHEST 1 VIEW, AP/PA ONLY Indication: Dyspnea Upright portable chest shows mild cardiomegaly with normal vascularity. There are patchy bilateral lower lobe infiltrates minimal effusions. There is no pneumothorax. IMPRESSION: Since 06/04/2020 there has been a decrease in the left-sided effusion. There is no significant change in the basilar infiltrates. Dictated by: Dictated on workstation # [id number] Dict: 06/05/20 0717 Trans: 06/05/20 0757 [facility] [id number] Interpreted by: BRYAN FREEDMAN MD Electronically signed by: BRYAN FREEDMAN MD 06/05/20 0757 A/P: Assessment: A-fib (new onset, dx on 06/03/20 by EKG at [place] [facility] Pneumonia - management per medical/pulmonary services Echocardiogram of Jun 04, 2020 showed LVEF 60-65%. Concentric hypertrophy. LA mod dilated. AoV thickening consistent with sclerosis. PASP 35-40mmHg Acute diastolic CHF HTN HLD Hypothyroidism Chronic left hip pain H/O lower back compression fx Plan: HR improved, but not well controlled, HR in the 120's - 140's just sitting up in bed Increase Cardizem dose May consider adding dig for rate control if increased Cardizem does not help Monitor lab closely Replace electrolytes as indicated THOMPSON CAMPBELL Jun 05, 2020 09:39
[2020-06-05] MEDS ORDERED: DIGOXIN 0.25 MG/ML (LANOXIN) 2 ML AMP IV NR (09:45)
[2020-06-05] MEDS: RT-ALBUTEROL INHALER HFA (VENTOLIN HFA) 18 GM IH SCH ×2 (10:35→22:00)
--- NOTE | 2020-06-05 15:46 | Progress Note - Cardiology ---
Cardiology SOAP Progress Note Subjective: No cp or palp or syncope Shortness of breath better Weakness and malaise persistent No n/v Objective: I&O/Vital Signs 06/05/20 06/05/20 06/05/20 06/05/20 04:00 04:04 06:00 07:27 Temp 36.7 Pulse 96 92 123 Resp 24 B/P (MAP) 134/78 (96) 111/76 (88) Pulse Ox 95 94 O2 Delivery Nasal Cannula Nasal Cannula O2 Flow Rate 1.00 1.00 06/05/20 06/05/20 06/05/20 06/05/20 08:00 08:00 09:26 10:35 Temp 36.5 Pulse 96 85 Resp 20 19 B/P (MAP) 114/63 (80) 110/94 (99) Pulse Ox 95 96 96 96 O2 Delivery Nasal Cannula Nasal Cannula Nasal Cannula Nasal Cannula O2 Flow Rate 1.00 1.00 1.00 1.00 06/05/20 06/05/20 06/05/20 06/05/20 12:00 12:30 12:55 13:25 Temp 36.4 Pulse 81 91 Resp 16 B/P (MAP) 97/60 (72) Pulse Ox 95 O2 Delivery Nasal Cannula Nasal Cannula O2 Flow Rate 1.00 1.00 06/05/20 15:19 Temp 36.3 Pulse 66 Resp 11 B/P (MAP) 135/70 (91) Pulse Ox 92 O2 Delivery Nasal Cannula O2 Flow Rate 1.00 06/05/20 00:00 Intake Total 490 ml Output Total 345 ml Balance 145 ml Constitutional: appears stated age, AAO x 3 Respiratory: chest expansion is symmetric, other (diminished lower lobes) Cardiovascular: irregularly irregular Gastrointestional: No tender; soft, round, audible bowel sounds Extremities: no lower extremity edema bilateral Neurologic/Psychiatric: grossly intact (moves all extremities) Skin: No rash on exposed areas, No ulcerations on exposed areas Results/Procedures: Labs Laboratory Tests 06/05/20 02:53: White Blood Count 7.9, Red Blood Count 3.80, Hemoglobin 11.5, Hematocrit 36, Mean Corpuscular Volume 94, Mean Corpuscular Hemoglobin 30, Mean Corpuscular Hemoglobin Concent 32, Red Cell Distribution Width 13.7, Platelet Count 239, Mean Platelet Volume 10.9, Immature Granulocyte % (Auto) 0, Neutrophils (%) (Auto) 75, Lymphocytes (%) (Auto) 13, Monocytes (%) (Auto) 9, Eosinophils (%) (Auto) 2, Basophils (%) (Auto) 1, Neutrophils # (Auto) 5.9, Lymphocytes # (Auto) 1.0, Monocytes # (Auto) 0.7, Eosinophils # (Auto) 0.2, Basophils # (Auto) 0.1, Immature Granulocyte # (Auto) 0.0, Sodium Level 139, Potassium Level 3.9, Chloride Level 106, Carbon Dioxide Level 25, Anion Gap 8, Blood Urea Nitrogen 18, Creatinine 0.77, Estimat Glomerular Filtration Rate > 60, BUN/Creatinine Ratio 23, Glucose Level 103, Calcium Level 8.0L, Thyroid Stimulating Hormone (TSH) 1.94 Microbiology 06/03/20 MRSA Screen - Final, Complete MRSA not isolated Laboratory Tests 06/04/20 02:31 06/05/20 02:53 A/P: Assessment: A-fib (new onset, dx on 06/03/20 by EKG at [place] [facility] Pneumonia - management per Medical/Pulmonary services Echocardiogram of Jun 04, 2020 showed LVEF 60-65%. Concentric hypertrophy. LA mod dilated. AoV thickening consistent with sclerosis. PASP 35-40mmHg Acute diastolic CHF HTN HLD Hypothyroidism Chronic left hip pain H/O lower back compression fx Plan: HR improved, but not well controlled, HR in the 120's - 140's just sitting up in bed Increase Cardizem dose May consider adding dig for rate control if increased Cardizem does not help Monitor lab closely Replace electrolytes as indicated ARCHANA KAMINSKI MD FACP FAC CCDS Jun 05, 2020 15:46
[2020-06-06] MEDS: ACETAMINOPHEN 500 MG TAB (TYLENOL) PO PRN (00:40)
[2020-06-06 02:07] LABS: BASOPHILS # (AUTO) 0.1 10^3/uL (0.0-0.1); BASOPHILS % (AUTO) 1 % (0-10); EOSINOPHILS # (AUTO) 0.2 10^3/uL (0.0-0.3); EOSINOPHILS % (AUTO) 2 % (0-10); HEMATOCRIT 36 % (35-52); HEMOGLOBIN 11.5 g/dL (11.5-16.0); LYMPHOCYTES # (AUTO) 1.1 10^3/uL (1.0-4.0); LYMPHOCYTES % (AUTO) 13 % (12-44); MEAN CORPUSCULAR HEMOGLOBIN 30 pg (25-34); MEAN CORPUSCULAR HGB CONC 32 g/dL (32-36); MEAN CORPUSCULAR VOLUME 94 fL (80-99); MEAN PLATELET VOLUME 10.4 fL (9.0-12.2); MONOCYTES # (AUTO) 0.8 10^3/uL (0.0-1.0); MONOCYTES % (AUTO) 10 % (0-12); NEUTROPHILS % (AUTO) 74 % (42-75); PLATELET COUNT 205 10^3/uL (130-400); WHITE BLOOD COUNT 8.1 10^3/uL (4.3-11.0)
[2020-06-06 02:21] LABS: CHLORIDE 102 MMOL/L (98-107); POTASSIUM 3.6 MMOL/L (3.6-5.0); SODIUM 138 MMOL/L (135-145)
[2020-06-06 02:22] LABS: CALCIUM 8.1 MG/DL (8.5-10.1); GLUCOSE 109 MG/DL (70-105)
[2020-06-06 02:24] LABS: CARBON DIOXIDE 20 MMOL/L (21-32)
[2020-06-06 02:26] LABS: CREATININE SERUM 0.76 MG/DL (0.60-1.30); GFR ESTIMATED > 60
[2020-06-06 02:27] LABS: BUN/CREATININE RATIO 18
[2020-06-06 03:17] LABS: PHOSPHORUS 3.1 MG/DL (2.3-4.7)
[2020-06-06 03:19] LABS: MAGNESIUM 1.9 MG/DL (1.6-2.4)
[2020-06-06] MEDS: LEVOTHYROXINE 88 MCG (LEVOTHORID) TAB PO SCH (06:08)
--- NOTE | 2020-06-06 06:14 | Pulmonary Progress Note ---
Subjective Time Seen by a Provider: 06:11 Subjective/Events-last exam No complications noted. Sepsis Event Evaluation Height, Weight, BMI Height: '" Weight: lbs. oz. kg; 26.96 BMI Method: Exam Exam Vital Signs Date Time Temp Pulse Resp B/P (MAP) Pulse Ox O2 Delivery O2 Flow Rate FiO2 06/06/20 03:08 93 Nasal Cannula 2.00 06/06/20 03:05 37.3 72 14 128/83 (98) 88 Room Air 06/06/20 01:16 67 06/05/20 23:35 36.7 75 19 124/81 (95) 94 Room Air 06/05/20 22:01 94 Nasal Cannula 1.00 06/05/20 20:00 92 Room Air 06/05/20 19:35 36.0 79 18 106/65 (79) 92 Room Air 06/05/20 19:12 82 06/05/20 15:19 36.3 66 11 135/70 (91) 92 Nasal Cannula 1.00 06/05/20 13:25 Nasal Cannula 1.00 06/05/20 12:55 36.4 06/05/20 12:30 91 06/05/20 12:00 81 16 97/60 (72) 95 Nasal Cannula 1.00 06/05/20 10:35 96 Nasal Cannula 1.00 06/05/20 09:26 96 Nasal Cannula 1.00 06/05/20 08:00 85 19 110/94 (99) 96 Nasal Cannula 1.00 06/05/20 08:00 36.5 96 20 114/63 (80) 95 Nasal Cannula 1.00 06/05/20 07:27 123 I & O 06/06/20 07:00 Intake Total 1270 ml Output Total 2080 ml Balance -810 ml Height & Weight Height: '" Weight: lbs. oz. kg; 26.96 BMI Method: General Appearance: No Apparent Distress, WD/WN HEENT: Other (NC in place) Neck: Full Range of Motion, Non Tender, Supple Respiratory: Lungs Clear, Normal Breath Sounds, No Accessory Muscle Use, No Respiratory Distress Cardiovascular: Irregularly Irregular, Tachycardia Capillary Refill: Less Than 3 Seconds Gastrointestinal: non tender, soft Extremity: Normal Capillary Refill, Normal Range of Motion, Non Tender, No Calf Tenderness, No Pedal Edema Neurologic/Psychiatric: Alert, Oriented x3, No Motor/Sensory Deficits, Normal Mood/Affect Skin: Normal Color, Warm/Dry Lymphatic: No Adenopathy Results Lab Laboratory Tests 06/05/20 02:53 06/06/20 01:45 Assessment/Plan Assessment/Plan SOB worse with exertion -Oxygen -Monitor -Check CXR -Currently on Rocephin -- Doubt PNA -Check UA and PCT Pulmonary edema -Echo shows EF 60-65% -Continue Lasix Afib RVR -Cardiology consulted -Currently on Xeralto Hypothryoid -start home synthroid -Check TSH HTN -Monitor KRISTINA GUPTA DO Jun 06, 2020 06:14
[2020-06-06] MEDS: FUROSEMIDE 40 MG/4 ML INJ (LASIX) IVP SCH (06:22)
[2020-06-06] MEDS: POTASSIUM CL 10MEQ/50ML IVPB 50 ML IV SCH ×5 (06:23→11:09)
[2020-06-06 06:39] LABS: BILIRUBIN,URINE NEGATIVE (NEGATIVE); CLARITY,URINE CLEAR; COLOR,URINE YELLOW; GLUCOSE, URINE (UA) NEGATIVE (NEGATIVE); KETONES,URINE NEGATIVE (NEGATIVE); LEUKOCYTE ESTERASE ,URINE 3+ (NEGATIVE); NITRITE,URINE NEGATIVE (NEGATIVE); PROTEIN,URINE NEGATIVE (NEGATIVE)
[2020-06-06 07:17] LABS: BACTERIA,URINE TRACE /HPF; RBC,URINE RARE /HPF; SQUAMOUS EPITHELIAL CELL,UR 0-2 /HPF
[2020-06-06] MEDS: RT-ALBUTEROL INHALER HFA (VENTOLIN HFA) 18 GM IH SCH ×2 (07:33→19:20)
[2020-06-06] MEDS ORDERED: NS (IVPB) 250 ML ONE (07:51)
[2020-06-06] MEDS ORDERED: ONDANSETRON 4 MG/2 ML (SDV) Z0FRAN ONE (08:01)
[2020-06-06] MEDS ORDERED: ONDANSETRON 4 MG/2 ML (SDV) Z0FRAN IVP PRN (08:15)
--- NOTE | 2020-06-06 08:33 | Progress Note ---
Subjective Subjective Date Seen by Provider: Jun 06, 2020 Time Seen by Provider: 08:20 PER NURSING STAFF, PT WAS SITTING UP IN BED, FELT LIKE SOMETHING WAS CAUGHT IN HER THROAT, DID EKG, STILL IN AFIB RATE IN THE 70-80'S. Review of Systems General: No Chills Pulmonary: No Dyspnea, No Cough Cardiovascular: No: Chest Pain, Palpitations All Other Systems Reviewed All Other Systems Reviewed: Yes Objective Exam Vital Signs Vital Signs - First Documented 06/03/20 23:11 Pulse 104 Resp 28 B/P (MAP) 134/110 (118) Pulse Ox 98 O2 Delivery Nasal Cannula O2 Flow Rate 1.00 Capillary Refill : Less Than 3 Seconds General Appearance: No Apparent Distress, WD/WN Eyes: Bilateral Eye Normal Inspection, Bilateral Eye PERRL, Bilateral Eye EOMI HEENT: Other (NC in place) Neck: Full Range of Motion, Non Tender, Supple Respiratory: Lungs Clear, Normal Breath Sounds, No Accessory Muscle Use, No Respiratory Distress Cardiovascular: Irregularly Irregular, Tachycardia Gastrointestinal: Normal Bowel Sounds, No Organomegaly, No Pulsatile Mass, Non Tender, Soft Rectal: Deferred Back: Normal Inspection, No Vertebral Tenderness Extremity: Normal Capillary Refill, Normal Range of Motion, Non Tender, No Calf Tenderness, No Pedal Edema Neurologic/Psychiatric: Alert, Oriented x3, No Motor/Sensory Deficits, Normal Mood/Affect Skin: Normal Color, Warm/Dry Lymphatic: No Adenopathy Results Lab Laboratory Tests 06/06/20 01:45: White Blood Count 8.1, Red Blood Count 3.78L, Hemoglobin 11.5, Hematocrit 36, Mean Corpuscular Volume 94, Mean Corpuscular Hemoglobin 30, Mean Corpuscular H emoglobin Concent 32, Red Cell Distribution Width 13.6, Platelet Count 205, Mean Platelet Volume 10.4, Immature Granulocyte % (Auto) 0, Neutrophils (%) (Auto) 74, Lymphocytes (%) (Auto) 13, Monocytes (%) (Auto) 10, Eosinophils (%) (Auto) 2, Basophils (%) (Auto) 1, Neutrophils # (Auto) 6.0, Lymphocytes # (Auto) 1.1, Monocytes # (Auto) 0.8, Eosinophils # (Auto) 0.2, Basophils # (Auto) 0.1, Immature Granulocyte # (Auto) 0.0, Sodium Level 138, Potassium Level 3.6, Chloride Level 102, Carbon Dioxide Level 20L, Anion Gap 16H, Blood Urea Nitrogen 14, Creatinine 0.76, Estimat Glomerular Filtration Rate > 60, BUN/Creatinine Ratio 18, Glucose Level 109H, Calcium Level 8.1L, Phosphorus Level 3.1, Magnesium Level 1.9, Procalcitonin 0.03 06/06/20 06:32: Urine Color YELLOW, Urine Clarity CLEAR, Urine pH 7.0, Urine Specific [place] <=1.005, Urine Protein NEGATIVE, Urine Glucose (UA) NEGATIVE, Urine Ketones NEGATIVE, Urine Nitrite NEGATIVE, Urine Bilirubin NEGATIVE, Urine Urobilinogen 0.2, Urine Leukocyte Esterase 3+H, Urine RBC (Auto) NEGATIVE, Urine RBC RARE, Urine WBC 10-25H, Urine Squamous Epithelial Cells 0-2, Urine Crystals NONE, Urine Bacteria TRACE, Urine Casts NONE, Urine Mucus NEGATIVE, Urine Culture Indicated YES Microbiology 06/03/20 MRSA Screen - Final, Complete MRSA not isolated Assessment/Plan Assessment/Plan Admission Dx NEW ONSET ATRIAL FIBRILLATION ACUTE BACTERIAL PNEUMONIA ELEVATED BNP HYPERTENSION HYPERLIPIDEMIA Assessment and Plan NEW ONSET ATRIAL FIBRILLATION ACUTE BACTERIAL PNEUMONIA ELEVATED BNP HYPERTENSION HYPERLIPIDEMIA NEW ONSET ATRIAL FIBRILLATION - CARDIZEM DRIP STOPPED, PT STARTED ON ORAL REGIMEN - CONSULT TO CARDIOLOGY - PT ON XARELTO FOR BLOOD THINNER ACUTE BACTERIAL PNEUMONIA - PT STARTED ON IV AZITHROMYCIN AND ROCEPHIN - MONITOR SERIAL CHEST XRAYS ELEVATED BNP - SLIGHTLY ELEVATED LIKELY DUE TO ATRIAL FIBRILLATION - MONITOR LABS HYPERTENSION - MONITOR PRESSURES ON CARDIZEM DRIP. HYPERLIPIDEMIA - RESUME HOME REGIMEN Admission Dx NEW ONSET ATRIAL FIBRILLATION ACUTE BACTERIAL PNEUMONIA ELEVATED BNP HYPERTENSION HYPERLIPIDEMIA Clinical Quality Measures Admission Status Admission Dx NEW ONSET ATRIAL FIBRILLATION ACUTE BACTERIAL PNEUMONIA ELEVATED BNP HYPERTENSION HYPERLIPIDEMIA DVT/VTE Risk/Contraindication: Risk Factor Score Per Nursin RFS Level Per Nursing on Admit: 2=Moderate CHARLENE NORRIS MD Jun 06, 2020 08:33
--- NOTE | 2020-06-06 08:44 | Diagnostic Imaging Report ---
INDICATION: Dyspnea. TECHNIQUE: Single view chest 4:10 AM. CORRELATION STUDY: 06/05/2020 FINDINGS: Mild cardiac enlargement, stable. Vasculature appears slightly more prominent from prior. Bilateral pleural effusions, left slightly greater than right. May be slightly increased. Additional superimposed atelectasis or infiltrate at the lung bases also present. Advanced degenerative changes of both shoulders. IMPRESSION: 1. Stable heart size and vasculature appearing slightly increased and more prominent from prior. 2. Bilateral pleural effusions along with atelectasis and/or infiltrate also appearing slightly more prominent. Dictated by: Dictated on workstation # [id number]
[2020-06-06] MEDS ORDERED: WATER (STERILE) FOR INJECTION 10 ML ONE (08:52)
[2020-06-06] MEDS ORDERED: cefTRIAXone 1,000 MG IV (ROCEPHIN) VIAL ONE (08:52)
[2020-06-06] MEDS: AZITHROMYCIN 250 MG TAB (ZITHROMAX) PO SCH (08:58)
[2020-06-06] MEDS: cefTRIAXone FOR IV USE 1,000 MG in WATER (STERILE) FOR INJECTION 10 ML IV SCH (08:59)
[2020-06-06] MEDS ORDERED: dilTIAZem120 MG (CARDIZEM CD) CAP PO SCH (09:00)
--- NOTE | 2020-06-06 09:36 | Progress Note - Cardiology ---
Cardiology SOAP Progress Note Subjective: No cp Gen malaise No shortness of breath or palp Objective: I&O/Vital Signs 06/05/20 06/05/20 06/06/20 06/06/20 22:01 23:35 01:16 03:05 Temp 36.7 37.3 Pulse 75 67 72 Resp 19 14 B/P (MAP) 124/81 (95) 128/83 (98) Pulse Ox 94 94 88 O2 Delivery Nasal Cannula Room Air Room Air O2 Flow Rate 1.00 06/06/20 06/06/20 06/06/20 06/06/20 03:08 07:06 07:33 08:47 Temp 36.5 Pulse 98 75 Resp 22 B/P (MAP) 117/69 (85) Pulse Ox 93 93 96 O2 Delivery Nasal Cannula Nasal Cannula Room Air O2 Flow Rate 2.00 1.00 06/06/20 00:00 Intake Total 900 ml Output Total 480 ml Balance 420 ml Constitutional: appears stated age, AAO x 3 Respiratory: chest expansion is symmetric, other (diminished lower lobes) Cardiovascular: irregularly irregular Gastrointestional: No tender; soft, round, audible bowel sounds Extremities: no lower extremity edema bilateral Neurologic/Psychiatric: grossly intact (moves all extremities) Skin: No rash on exposed areas, No ulcerations on exposed areas Results/Procedures: Labs Laboratory Tests 06/06/20 01:45: White Blood Count 8.1, Red Blood Count 3.78L, Hemoglobin 11.5, Hematocrit 36, Mean Corpuscular Volume 94, Mean Corpuscular Hemoglobin 30, Mean Corpuscular Hemoglobin Concent 32, Red Cell Distribution Width 13.6, Platelet Count 205, Mean Platelet Volume 10.4, Immature Granulocyte % (Auto) 0, Neutrophils (%) (Auto) 74, Lymphocytes (%) (Auto) 13, Monocytes (%) (Auto) 10, Eosinophils (%) (Auto) 2, Basophils (%) (Auto) 1, Neutrophils # (Auto) 6.0, Lymphocytes # (Auto) 1.1, Monocytes # (Auto) 0.8, Eosinophils # (Auto) 0.2, Basophils # (Auto) 0.1, Immature Granulocyte # (Auto) 0.0, Sodium Level 138, Potassium Level 3.6, Chloride Level 102, Carbon Dioxide Level 20L, Anion Gap 16H, Blood Urea Nitrogen 14, Creatinine 0.76, Estimat Glomerular Filtration Rate > 60, BUN/Creatinine Ratio 18, Glucose Level 109H, Calcium Level 8.1L, Phosphorus Level 3.1, Magnesium Level 1.9, Procalcitonin 0.03 06/06/20 06:32: Urine Color YELLOW, Urine Clarity CLEAR, Urine pH 7.0, Urine Specific [place] <=1.005, Urine Protein NEGATIVE, Urine Glucose (UA) NEGATIVE, Urine Ketones NEGATIVE, Urine Nitrite NEGATIVE, Urine Bilirubin NEGATIVE, Urine Urobilinogen 0.2, Urine Leukocyte Esterase 3+H, Urine RBC (Auto) NEGATIVE, Urine RBC RARE, Urine WBC 10-25H, Urine Squamous Epithelial Cells 0-2, Urine Crystals NONE, Urine Bacteria TRACE, Urine Casts NONE, Urine Mucus NEGATIVE, Urine Culture Indicated YES Microbiology 06/03/20 MRSA Screen - Final, Complete MRSA not isolated A/P: Assessment: A-fib (new onset, dx on 06/03/20 by EKG at [place] [facility] Pneumonia - management per Medical/Pulmonary services Echocardiogram of Jun 04, 2020 showed LVEF 60-65%. Concentric hypertrophy. LA mod dilated. AoV thickening consistent with sclerosis. PASP 35-40mmHg Acute diastolic CHF, improved HTN HLD Hypothyroidism Chronic left hip pain H/O lower back compression fx Plan: Cardizem increased beginning yesterday May consider adding dig for rate control if increased Cardizem does not help Monitor lab closely Replace electrolytes as indicated Discussed case with Dr Yan today ARCHANA KAMINSKI MD FACP FAC CCDS Jun 06, 2020 09:36
--- NOTE | 2020-06-06 11:22 | Physical Therapy Evaluation ---
PT Evaluation-General Medical Diagnosis Admission Date Jun 03, 2020 at 23:05 Medical Diagnosis: A-fib/pneumonia Onset Date: Jun 03, 2020 Therapy Diagnosis Therapy Diagnosis: debility/weakness Precautions Precautions/Isolations: Fall Prevention, Standard Precautions Referral Physician: Yuriy Reason for Referral: Evaluation/Treatment Medical History Pertinent Medical History: HTN Current History ER at [facility] secondary to SOA/transfer to [facility] secondary to A-fib Reviewed History: Yes Social History Home: Single Level Current Living Status: Spouse Prior Prior Level of Function SCALE: Activities may be completed with or without assistive devices. 1-Pgbhafyvwl-lyafvgi completes the activity by him/herself with no assistance from a helper. 5-Set-up or Clean-up Assistance-helper sets up or cleans up; patient completes activity. [place] assists only prior to or following the activity. 4-Supervision or Touching Assistance-helper provides verbal cues and/or touching/steadying and/or contact guard assistance as patient completes activity. Assistance may be provided throughout the activity or intermittently. 3-Partial/Moderate Assistance-helper does LESS THAN HALF the effort. [place] lifts, holds or supports trunk or limbs, but provides less than half the effort. 2-Substantial/Maximal Assistance-helper does MORE THAN HALF the effort. [place] lifts or holds trunk or limbs and provides more than half the effort. 4-Wdkjwgkzr-azttkc does ALL the effort. Patient does none of the effort to complete the activity. Or, the assistance of 2 or more helpers is required for the patient to complete the activity. If activity was not attempted, code reason: 7-Patient Refused. 9-Not Applicable-not attempted and the patient did not perform the activity before the current illness, exacerbation or injury. 10-Not Attempted due to Environmental Limitations-(lack of equipment, weather restraints, etc.). 88-Not Attempted due to Medical Conditions or Safety Concerns. Bed Mobility: 6 Transfers (B,C,W/C): 6 Gait: 6 Stairs: 6 Indoor Mobility (Ambulation): Independent Stairs: Independent Prior Device Use: cane PT Evaluation-Current Subjective Patient agrees to PT. RN placed portal tele on patient to monitor patient HR with activity. Objective Patient Orientation: Normal For Age Attachments: Oxygen, Heard Catheter, IV ROM/Strength ROM Lower Extremities bilateral LE WFL Strength Lower Extremities 4-/5 grossly bilateral LE all planes Integumentary/Posture Integumentary refer to nursing notes Bowel Incontinence: No Bladder Incontinence: Heard Cath Posture WFL Neuromuscular (Tone, Coordination, Reflexes) grossly intact Sensory Vision: Functional Hearing: Functional Sensation Right Lower Extremit: Intact Sensation Left Lower Extremity: Intact Transfers Roll Left to Right (QC): 4 Sit to Lying (QC): 3 Lying to Sitting/Side of Bed(Q: 3 Sit to Stand (QC): 3 Chair/Jlx-xc-Cxqzh Xfer(QC): 3 Gait Does the Patient Walk?: Yes Mode of Locomotion: Walk Anticipated Mode of Locomotion: Walk Walk 10 feet (QC): 3 Walk 50 ft with 2 Turns(QC): 3 Walk 150 ft (QC): 3 Distance: 150' Gait Assistive Device: FWW Comments/Gait Description safe and functional gait sequence Balance Sitting Static: Normal Sitting Dynamic: Normal Standing Static: Normal Standing Dynamic: Normal Treatment HR elevated to 150-220's with ambulation Assessment/Needs 89 y.o. female, will benefit from skilled PT to address functional strength and mobility to ensure safe return to home at maximum LOF. Rehab Potential: Fair PT Group Home Goals Hoop Bender Tank Goals PT Group Home Goals Time Frame: Jun 14, 2020 Roll Left & Right (QC): 5 Sit to Lying (QC): 5 Lying-Sitting on Side/Bed(QC): 5 Sit to Stand (QC): 5 Chair/Qmc-js-Itrzu Xfer(QC): 5 Toilet Transfer (QC): 5 Does the Patient Walk: Yes Walk 10 feet (QC): 5 Walk 50ft with 2 Turns (QC): 5 Walk 150 ft (QC): 5 PT Plan Problem List Problem List: Activity Tolerance, Bed Mobility, Other (elevated HR) Treatment/Plan Treatment Plan: Continue Plan of Care Treatment Plan: Bed Mobility, Education, Functional Activity Karli, Functional Strength, Gait, Safety, Therapeutic Exercise, Transfers Treatment Duration: Jun 14, 2020 Frequency: 6 times per week Estimated Hrs Per Day: .25 hour per day Discharge Recommendations Therapy Discharge Recommendati: Home & Family Time/GCodes Time In: 1020 Time Out: 1108 Total Billed Treatment Time: 18 Total Billed Treatment 1 visit EVModC 18 min LAZARO BOWLES PT Jun 06, 2020 11:22
--- NOTE | 2020-06-06 11:25 | NUR ---
THIS NURSE NOTIFIED DR KAMINSKI PT GOT UP AND WALKED WITH PHYSICAL THERAPY AND HER HEART RATE WAS 160-200S AFIB. PT DENIES CP, DIZZINESS, PALPITATIONS, OR SOA. ORDERS GIVEN. SEE ORDER HX. DR KAMINSKI IS OKAY WITH PT GOING TO FOURTH FLOOR WITH TELE.
[2020-06-06] MEDS ORDERED: DIGOXIN 0.125 MG (LANOXIN) TAB PO ONE (11:45)
--- NOTE | 2020-06-06 13:23 | NUR ---
CM/SS visited with the patient for discharge planning. Plan: At time of discharge the patient will return home with home health and the patient's daughter Mony will stay at the home. Home health: The patient was provided with a choice list and chose [facility]. CM/SS contacted the agency and spoke with Radha. CM/SS made referral and faxed clinical. Home: The patient lives at home with her . She is the primary caregiver for her . The patient reports to being independent prior to being admitted to the hospital but used a cane due to her hip. Equipment: The patient is wearing oxygen in the room but states she does not wear it at baseline. The patient has a cane, shower chair, toilet seat riser, and they are waiting on Chip Bin Operator bars for the toilet to assist them in getting up. Caregiver: The patient reports that she has a paid caregiver for her but he is only there for 8 hours a week. She is wanting to hire him for more hours. Medications: The patient reports that she has Medicare and believes she has Medicare part D to assist with her medications. CM/SS provided the patient with a 30-day-free card for Xarelto. CM/SS contacted the patient's daughter Cyndi ([phone]) to discuss discharge plans. CM/SS asked the patient if she would stay with the patient and her for a while to assist with the care. She states that she is willing to stay and other family members would assist as well if needed. CM/SS will continue to follow.
--- NOTE | 2020-06-06 13:48 | NUR ---
OXYGEN STUDY PT FINE WHILE AWAKE ON ROOM AIR SPO2 93%, WHILE PATIENT FELL ASLEEP IN CHAIR ON ROOM AIR WHEN ENTERING THE ROOM SPO2 86%. PT WILL REQUIRE 2 LPM OXYGEN AT NIGHT
--- NOTE | 2020-06-06 16:54 | NUR ---
REPORT CALLED TO CHIKA DAUGHERTY.
--- NOTE | 2020-06-06 16:54 | NUR ---
REPORT RECEIVED FROM BRITTANIE JONES RN
[2020-06-06] MEDS: RIVAROXABAN 20 MG TABLET (XARELTO) PO SCH (17:14)
--- NOTE | 2020-06-06 17:40 | NUR ---
PT ARRIVED TO FLOOR VIA WC, PT ORIENTED TO ROOM AND CALL LIGHT. PT DENIES NEEDS AT THIS TIME, VSS, WILL CONTINUE TO MONITOR
[2020-06-07] MEDS: ACETAMINOPHEN 500 MG TAB (TYLENOL) PO PRN (03:10)
[2020-06-07 05:23] LABS: BASOPHILS # (AUTO) 0.1 10^3/uL (0.0-0.1); BASOPHILS % (AUTO) 1 % (0-10); EOSINOPHILS # (AUTO) 0.3 10^3/uL (0.0-0.3); EOSINOPHILS % (AUTO) 3 % (0-10); HEMATOCRIT 39 % (35-52); HEMOGLOBIN 12.3 g/dL (11.5-16.0); LYMPHOCYTES # (AUTO) 1.3 10^3/uL (1.0-4.0); LYMPHOCYTES % (AUTO) 13 % (12-44); MEAN CORPUSCULAR HEMOGLOBIN 30 pg (25-34); MEAN CORPUSCULAR HGB CONC 32 g/dL (32-36); MEAN CORPUSCULAR VOLUME 95 fL (80-99); MEAN PLATELET VOLUME 10.2 fL (9.0-12.2); MONOCYTES # (AUTO) 0.8 10^3/uL (0.0-1.0); MONOCYTES % (AUTO) 8 % (0-12); NEUTROPHILS # (AUTO) 7.5 10^3/uL (1.8-7.8); NEUTROPHILS % (AUTO) 76 % (42-75); PLATELET COUNT 242 10^3/uL (130-400); WHITE BLOOD COUNT 9.9 10^3/uL (4.3-11.0)
[2020-06-07 05:33] LABS: CHLORIDE 101 MMOL/L (98-107); POTASSIUM 4.3 MMOL/L (3.6-5.0); SODIUM 137 MMOL/L (135-145)
[2020-06-07 05:34] LABS: CALCIUM 8.3 MG/DL (8.5-10.1); GLUCOSE 102 MG/DL (70-105)
[2020-06-07 05:36] LABS: CARBON DIOXIDE 27 MMOL/L (21-32)
[2020-06-07 05:38] LABS: CREATININE SERUM 0.74 MG/DL (0.60-1.30); GFR ESTIMATED > 60
[2020-06-07 05:39] LABS: BUN/CREATININE RATIO 19
[2020-06-07] MEDS: LEVOTHYROXINE 88 MCG (LEVOTHORID) TAB PO SCH (06:12)
[2020-06-07] MEDS: RT-ALBUTEROL INHALER HFA (VENTOLIN HFA) 18 GM IH SCH (07:32)
[2020-06-07] MEDS ORDERED: DIGOXIN 0.125 MG (LANOXIN) TAB PO SCH (09:00)
[2020-06-07] MEDS ORDERED: cefTRIAXone FOR IV USE 1,000 MG in WATER (STERILE) FOR INJECTION 10 ML IV SCH (09:00)
[2020-06-07] MEDS: AZITHROMYCIN 250 MG TAB (ZITHROMAX) PO SCH (09:08)
[2020-06-07] MEDS: FUROSEMIDE 40 MG/4 ML INJ (LASIX) IVP SCH (09:09)
[2020-06-07 09:20] VITALS: BP 110/67
--- NOTE | 2020-06-07 09:42 | Physical Therapy Daily Note ---
PT Daily Note-Current Subjective Pt supine in bed upon arrival to room, agreeable to PT treatment with encouragement. Pt reports she is tired this date as she did not sleep well last night. Pt has no reports of pain throughout session, but does c/o SOB following ambulation. Appearance Following session, pt returned to supine in bed with call light and tray within reach. RN present with pt in room following session. Mental Status Patient Orientation: Person, Place, Situation Transfers SCALE: Activities may be completed with or without assistive devices. 2-Eysriieauq-nprjuea completes the activity by him/herself with no assistance from a helper. 5-Set-up or Clean-up Assistance-helper sets up or cleans up; patient completes activity. [place] assists only prior to or following the activity. 4-Supervision or Touching Assistance-helper provides verbal cues and/or touching/steadying and/or contact guard assistance as patient completes activity. Assistance may be provided throughout the activity or intermittently. 3-Partial/Moderate Assistance-helper does LESS THAN HALF the effort. [place] lifts, holds or supports trunk or limbs, but provides less than half the effort. 2-Substantial/Maximal Assistance-helper does MORE THAN HALF the effort. [place] lifts or holds trunk or limbs and provides more than half the effort. 5-Wqgydlwqo-fjgefl does ALL the effort. Patient does none of the effort to complete the activity. Or, the assistance of 2 or more helpers is required for the patient to complete the activity. If activity was not attempted, code reason: 7-Patient Refused. 9-Not Applicable-not attempted and the patient did not perform the activity before the current illness, exacerbation or injury. 10-Not Attempted due to Environmental Limitations-(lack of equipment, weather restraints, etc.). 88-Not Attempted due to Medical Conditions or Safety Concerns. Roll Left & Right (QC): 4 Sit to Lying (QC): 4 Lying to Sitting/Side of Bed(Q: 4 Sit to Stand (QC): 3 Gait Training Distance: 200' Walk 10 feet (QC): 4 Walk 50 ft with 2 Turns(QC): 4 Walk 150 ft (QC): 3 Gait Assistive Device: FWW Treatments Pt O2 drops to 83-84% with ambulation, and returns to >94% with approx 1 minute seated rest break. HR elevated to 139 with exertion. Assessment Current Status: Good Progress Pt motivated to increase activity level once up this date. She continues to have increased HR and decreased O2 with exertion. PT Senior Living Goals Senior Living Goals PT Emergency Technician Goals Time Frame: Jun 14, 2020 Roll Left & Right (QC): 5 Sit to Lying (QC): 5 Lying-Sitting on Side/Bed(QC): 5 Sit to Stand (QC): 5 Chair/Mza-ya-Wftto Xfer(QC): 5 Toilet Transfer (QC): 5 Does the Patient Walk: Yes Walk 10 feet (QC): 5 Walk 50ft with 2 Turns (QC): 5 Walk 150 ft (QC): 5 PT Plan Problem List Problem List: Activity Tolerance, Functional Strength, Safety, Balance, Gait, Transfer, Bed Mobility, ROM Treatment/Plan Treatment Plan: Continue Plan of Care Treatment Plan: Bed Mobility, Education, Functional Activity Karli, Functional Strength, Gait, Safety, Therapeutic Exercise, Transfers Treatment Duration: Jun 14, 2020 Frequency: 6 times per week Estimated Hrs Per Day: .25 hour per day Time/GCodes Time In: 905 Time Out: 925 Total Billed Treatment 1 visit GT (20') PAULINO CHAVEZ PT Jun 07, 2020 09:42
--- NOTE | 2020-06-07 09:48 | NUR ---
PATIENT NEEDS O2 AT 2 L CONTINOUSLY DUE TO DYSPNEA WITH EXERTION. O2 SAT DROPPED TO 83% AND WENT BACK UP TO 92% ON 2 L NC AND INCREASED WOB GOT BETTER.
--- NOTE | 2020-06-07 10:43 | Discharge Summary ---
Diagnosis/Chief Complaint Date of Admission Jun 03, 2020 at 23:05 Date of Discharge Reason Hospital Visit PT IS AN 89 Y/O FEMALE WHO IS KNOWN TO ME FROM CLINIC. SHE PRESENTED TO THE [facility] EMERGENCY DEPARTMENT WITH COMPLAINT OF PROGRESSIVE SHORTNESS OF BREATH AND WEAKNESS. SHE WAS EVALUATED, FOUND TO BE IN AFIB WITH RVR, HEART RATE IN THE 120 - 140 RANGE, STARTED ON A CARDIZEM DRIP AND THEN TRANSFERRED TO [facility] ICU FOR CARDIOLOGY EVALUATION AND FURTHER MEDICAL MANAGEMENT BY THIS QUEEN'S COUNSEL. THIS MORNING SHE DENIES CHEST PAIN, SHORTNESS OF BREATH IS SLIGHT COMPARED TO YESTERDAY, NO BACK PAIN, NO ABDOMINAL PAIN. Discharge Summary Discharge Physical Examination Allergies: Coded Allergies: penicillin G benethamine (Verified Allergy, Mild, 06/03/20) Vitals & I&Os Vital Signs Date Time Temp Pulse Resp B/P (MAP) Pulse Ox O2 Delivery O2 Flow Rate FiO2 06/07/20 09:20 77 90 06/07/20 08:00 35.6 20 103/71 (82) Room Air 06/06/20 13:44 2.00 Hospital Course Pending Labs Laboratory Tests 06/07/20 05:10: White Blood Count 9.9, Red Blood Count 4.08, Hemoglobin 12.3, Hematocrit 39, Mean Corpuscular Volume 95, Mean Corpuscular Hemoglobin 30, Mean Corpuscular Hemoglobin Concent 32, Red Cell Distribution Width 13.4, Platelet Count 242, Mean Platelet Volume 10.2, Immature Granulocyte % (Auto) 0, Neutrophils (%) (Auto) 76, Lymphocytes (%) (Auto) 13, Monocytes (%) (Auto) 8, Eosinophils (%) (Auto) 3, Basophils (%) (Auto) 1, Neutrophils # (Auto) 7.5, Lymphocytes # (Auto) 1.3, Monocytes # (Auto) 0.8, Eosinophils # (Auto) 0.3, Basophils # (Auto) 0.1, Immature Granulocyte # (Auto) 0.0, Sodium Level 137, Potassium Level 4.3, Chloride Level 101, Carbon Dioxide Level 27, Anion Gap 9, Blood Urea Nitrogen 14, Creatinine 0.74, Estimat Glomerular Filtration Rate > 60, BUN/Creatinine Ratio 19, Glucose Level 102, Calcium Level 8.3 Discharge Instructions to patient/family Please see electronic discharge instructions given to patient. Discharge Medications Reviewed and agree with Discharge Medication list on patient's Discharge Instruction sheet Clinical Quality Measures DVT/VTE Risk/Contraindication: Risk Factor Score Per Nursin RFS Level Per Nursing on Admit: 2=Moderate CHARLENE NORRIS MD Jun 07, 2020 10:43
[2020-06-07] MEDS ORDERED: RIVA15TA PO (10:51)
[2020-06-07] MEDS ORDERED: DIGO125T18 PO (10:51)
[2020-06-07] MEDS ORDERED: CEFD300C3 PO (10:51)
[2020-06-07] MEDS ORDERED: DILT180C85 PO (10:51)
[2020-06-07] MEDS ORDERED: LACT1CAP8 PO (10:51)
--- NOTE | 2020-06-07 10:53 | D/C HH Face to Face Order ---
D/C Face to Face Orders Reconcile Patient Problems Problems Reviewed?: Yes Instructions for Patient Via [facility], Patient Instructions/FollowUp: 1 wk [facility] 2 wks cardiology Physician to follow Patient: y Discharge Diet for Home: Regular Diet Patient Problems: pneumonia atrial fibrillation hypertension Patient Data-Allergies,Ht & Wt Patient Allergies: Coded Allergies: penicillin G benethamine (Verified Allergy, Mild, 06/03/20) Home Health Need/Face to Face Date of Face to Face: Jun 07, 2020 Clinical Findings: Generalized weakness and fatigue, Muscle weakness, Shortness of breath pneumonia atrial fibrillation hypertension I have seen Pt kugn-im-kdmz: Yes Discharged To: Home Diagnosis/Conditions: pneumonia atrial fibrillation hypertension Patient is Homebound due to: Markus fall risk due to instabilty, Muscle weakness Homebound Status Due to the above stated illness, injury or surgical procedure (medical condition or diagnosis) and associated clinical findings, the patient is homebound because of his/her inability to leave home except with aid of a supportive device and/or person AND leaving the home requires a considerable and taxing effort or is medically contraindicated. Pt req the following assistanc: Cane Home Health Nursing Orders Home Health Services Order: Nursing Services, Physical Therapy-Evaluate & Treat cbc, cmp, digoxin level in 1 wk Therapy Orders Therapy Orders: Physical Therapy, PT to assess for OT Therapy Specific Orders: Eval assistive deivces, Teach enviro modifications /safety, Increase strength/endurance Certify Stmt I certify that this patient is under my care and that I, a nurse practitioner or a physician; a creative assistant working with me, had a face to face encounter that - meets the physician face to face encounter requirements with this patient as dated. CHARLENE NORRIS MD Jun 07, 2020 10:53
--- NOTE | 2020-06-07 12:07 | NUR ---
CM/SS finalized discharge plan. Plan: The patient will return home today with home health and new oxygen. Home Health: [facility] has accepted patient for admission. Home Health orders faxed. DME: CM/SS contacted [facility] to set up oxygen. They will deliver to the hospital and provide home set up. CM/SS faxed face sheet, insurance, H&P, home o2 study and script. CM/SS contacted the patient's daughter to inform her of set up and informed her the patient's oxygen is delivered. CM/SS informed her the patient still needs dressed and discharge packet given. She verbalized understanding.
--- NOTE | 2020-06-07 13:50 | NUR ---
RD ASSESSMENT PMHx: hypercholesterolemia; HTN; PT INTERACTION: Pt was awake and pleasant during nutrition assessment. Pt states current appetite is "off/on." Note avg PO intake 50-75% x2d, per chart review. Pt states following a low-fat diet at home, and has no issues with chewing/swallowing food. Pt states no recent issues with nausea, vomiting, constipation, or diarrhea. Note last BM was 1/, and pt not currently on bowel regimen per chart review. Pt states unsure of recent wt changes. Note unable to determine recent wt hx, per chart review. Est. kcal needs: 4348-1022 kcal | 20-25 kcal/kg Est. Pro needs: 55-69 g Pro | 0.8-1.0 g Pro/kg PES STATEMENT: Inadequate oral intake (NI-2.1) related to loss of appetite, as evidenced by pt interview, and avg PO intake 50-75% x2d. INTERVENTION: Continue with current diet order of Heart Healthy diet. Pt may benefit from nutrition supplementation if PO intake declines. Encouraged pt to eat when able. Will continue to follow and reassess as pt needs, intake, and status change. Naomi ADAMS, MS RD LD [phone] cell
--- NOTE | 2020-06-07 14:49 | Cardiology Progress Note ---
Cardiology SOAP Progress Note Subjective: no cardiac complaints Objective: I&O/Vital Signs Constitutional: appears stated age, AAO x 3 Respiratory: chest expansion is symmetric, other (diminished lower lobes) Cardiovascular: irregularly irregular Gastrointestional: No tender; soft, round, audible bowel sounds Extremities: no lower extremity edema bilateral Neurologic/Psychiatric: grossly intact (moves all extremities) Skin: No rash on exposed areas, No ulcerations on exposed areas Results/Procedures: Labs Microbiology 06/06/20 Urine Culture - Final, Complete NO GROWTH 06/03/20 MRSA Screen - Final, Complete MRSA not isolated A/P: Assessment/Dx: A-fib (new onset, dx on 06/03/20 by EKG at [facility] Pneumonia - management per Medical/Pulmonary services Echocardiogram of Jun 04, 2020 showed LVEF 60-65%. Concentric hypertrophy. LA mod dilated. AoV thickening consistent with sclerosis. PASP 35-40mmHg Acute diastolic CHF, improved HTN HLD Hypothyroidism Chronic left hip pain H/O lower back compression fx Plan: Plan: better control of AF Monitor lab closely Replace electrolytes as indicated Discussed case with Dr Yan today Thank you for your consultation. Please call me if you have any questions. Jg Murdock MD, FACP, FACC, FSCAI, FHRS, CCDS Interventional Cardiology Cardiac Electrophysiology Vascular Medicine and Endovascular Interventions Cuong MURDOCK MD Jun 07, 2020 14:48
--- NOTE | 2020-06-07 15:11 | NUR ---
Reviewed patient's discharge information and reviewed new medications as well as meds to stop, highlighted these for her and put date when to take as some of the meds she already had today. Plan is to contact her oxygen supply company to set up an appointment so they can come to her house to set up home oxygen. Son-in -law picked up patient.
== END 2020-06-07 15:10 | disposition home health service (06) | DRG 291 ==
LOC: ICU 23:05 → CSD 06-05 12:59 → 4TH 06-06 17:23
PROVIDERS: ADMIT Family Medicine; ATTEND Family Medicine
DX: I11.0 Hypertensive heart disease with heart failure (principal); J15.9 Unspecified bacterial pneumonia; I50.31 Acute diastolic (congestive) heart failure; I48.91 Unspecified atrial fibrillation; E03.9 Hypothyroidism, unspecified; E78.00 Pure hypercholesterolemia, unspecified; M19.90 Unspecified osteoarthritis, unspecified site; M25.552 Pain in left hip; G89.29 Other chronic pain; Z88.0 Allergy status to penicillin
CPT/HCPCS: 36415; 71045; 80048; 80053; 81000; 83735; 83880; 84100; 84145; 84443; 85025; 87081; 87088; 90662; 93005; 93306; 94640; 94664; 94761

== ENCOUNTER → 2020-07-31 | Outpatient (CLI) | payer MEDICARE, OTHER ==
[~2020-07-31] VITALS: Ht 154 cm; Wt 70.0 kg
[~2020-07-31] MED LIST: AMLO-250 PO; ASCO-262 PO; CEFD300C3 PO; CHOL100048 PO; DIGO125T18 PO; DILT180C85 PO; KETO5DRO14 OS; LACT1CAP8 PO; LEVO88TA54 PO; LISI40TA9 PO; MULT-1136 PO; NAPR-1088 PO; OFLO5DRO3 OS; OMEG-109 PO; POTA10TA PO; PRED5DRO24 OS; REGADENOSON 0.4 MG/5 ML SYR (LEXISCAN) IV ONE; RIVA15TA PO; VITA100C22 PO
[2020-07-31] MEDS: CATHETER FLUSH 10 ML SYR IV PRN ×2 (08:35→09:36)
[2020-07-31 09:34] VITALS: BP 151/65
--- NOTE | 2020-07-31 15:35 | Cardiology Stress Test Report ---
Stress Test Report Date of Procedure/Referring: Date of Procedure: Jul 31, 2020 PCP Bere Gamez MD Admitting Physician Carolin Yan MD Indications: CP Baseline Heart Rate: 54 Baseline Blood Pressure: Blood Pressure Systolic: 151 Blood Pressure Diastolic: 65 Baseline Vitals Vital Signs Date Time Temp Pulse Resp B/P (MAP) Pulse Ox O2 Delivery O2 Flow Rate FiO2 07/31/20 09:34 57 16 151/65 (93) 97 Room Air Baseline EKG: Baseline EKG: A fib Summary After explaining the procedure to the patient, she signed a consent and then brought to the stress nuclear laboratory. Patient received 0.4 mg Lexiscan for stress test, ECG, heart rate and blood pressure were monitored continuously. Resting and stress dose of radio tracer were injected, imaging was acquired and reviewed in short axis, horizontal long axis and vertical long axis views. TID: 1.06 SSS: 6 SDS: 6 EF: 69 1. Patient tolerated Lexiscan well 2. Baseline atrial fibrillation persisted during test 3. Extracardiac attenuation with the arms down during test affecting the quality of the images, there is questionable ischemia involving the mid to apical anterolateral and inferolateral wall 4. Normal left ventricular size, EF 69 percent, gated images are unreliable due to underlying atrial fibrillation BERE GAMEZ MD Jul 31, 2020 15:34
== END ==
LOC: CARD 08:30
PROVIDERS: ATTEND Internal Medicine Cardiovascular Disease
DX: R07.9 Chest pain, unspecified (principal)
CPT/HCPCS: 78452; 93017; A9502